=== PATIENT | female | born 1955 | race Caucasian/White ===

== ENCOUNTER 2024-05-28 19:33 | Inpatient (IN) | payer OTHER, SELFPAY ==
[2024-05-28 17:38] VITALS: BP 92/63
[2024-05-28 17:44] VITALS: BMI 15.8
--- NOTE | 2024-05-28 17:52 | ED.GENMED ---
History of Present Illness
General
Chief Complaint: Failure to Thrive
Source: family
Exam Limitations: dementia
Time Seen by Provider: 05/28/24 17:38
Nursing documentation reviewed up to this point in time: agreed with
History of Present Illness
History of Present Illness:
Patient is a 68-year-old female uxa-qzauira-xxdodxbdq diabetes, hypertension and dementia from [facility] sent by EMS. Daughter and son at bedside reports patient has not been eating or drinking for the past several days. This
problem has been gradually getting worse over the past year.
They report she probably lost about 50 pounds over the past year. Family reports pt was supposed to be started on Remeron and sertraline however they are unclear if this has started.
They do report the patient is at baseline mental status.
In March patient was living by herself then she went to assisted living and finally to personal care at [facility]
Review of Systems
Review of Systems
Allergies reviewed?: Yes
Unable to obtain full review of systems at this time due to: dementia
Other source history: family and [facility]
All Other Systems: ROS reviewed and negative except as documented in HPI and ROS
Constitutional: Reports weight loss
Phy Exam
General Physical Exam
General Presentation: no apparent distress
General age: appears stated age
General Skin: warm and dry
General Habitus: elderly
General Mental: alert
General Hydration: dry mucous membranes
Cardiovascular Exam
Cardiovascular Exam: regular rate/rhythm, no murmur and normal peripheral pulses
Pulmonary Exam
Pulmonary Exam: lungs clear and no respiratory distress
Neurological Exam
Neurological Exam: alert and oriented x3
Musculoskeletal Exam
Musculoskeletal Exam: full ROM
Skin Exam
Skin Exam: normal color and warm/dry
Psychiatric Exam
Psychiatric Exam: normal mood/affect
Course
Orders/Labs/Results
Orders:
Orders
05/28/24 18:07
Straight cath- Treatment ONCE
Urinalysis Reflex To Culture Urgent
05/28/24 18:08
0.9% Sodium Chloride 1000 ml [Nss] 1,000 ml IV BOLUS
05/28/24 18:16
Complete Blood Count/With Diff Urgent
Comprehensive Metabolic Panel Urgent
05/28/24 18:43
Electrocardiogram (*1) Stat
Reason for Study: Other
Other Reason for Exam: chest pain
EKG- Treatment ONCE
Abnormal Lab Results
05/28/24
18:16
MPV 11.2 H fL
(7.4-10.4)
Absolute Lymphs (auto) 1.0 L 10^3/uL
(1.2-3.4)
Neutrophils % 77.7 H %
(42.2-75.2)
Lymphocytes % 16.3 L %
(20.5-51.1)
Chloride 109 H mmol/L
(98-107)
Carbon Dioxide 18 L mmol/L
(22-30)
BUN 51 H mg/dl
(7-17)
Creatinine 1.3 H mg/dL
(0.6-1.0)
Total Bilirubin 3.6 H mg/dl
(0.2-1.3)
05/28/24 18:16
05/28/24 18:16
Vital Signs
Initial and Last Documented VS:
Initial Vital Signs
Temp Pulse Resp BP Pulse Ox
97.5 F 60 24 92/63 100
05/28/24 17:38 05/28/24 17:38 05/28/24 17:38 05/28/24 17:38 05/28/24 17:38
Last Documented Vital Signs
Temp Pulse Resp BP Pulse Ox
97.5 F 57 24 101/75 100
05/28/24 18:15 05/28/24 18:15 05/28/24 17:38 05/28/24 18:15 05/28/24 18:15
MDM/Problems Addressed
Differential Diagnosis Includes:
Dehydration Jessica abnormality failure to thrive
MDM/Problems Addressed:
Patient will require admission for failure to thrive. This has been getting progressively worse however worse over the past several days. Patient is very dry on exam elevated BUN of 51 creatinine 1.3 patient has not been here in the past. She
denies any elevated bilirubin 3.6 with normal LFTs. CBC unremarkable UA pending. Patient receiving fluids here will require admission.
Chronic conditions affecting care:
Dementia
*Critical Care Note
Total Time (30-74mins, 75-104mins- exclusive of procedures): Not Applicable
ED Attending Note
-
Portions of this chart may have been created with voice recognition software.� Occasional wrong word or��sound alike� substitutions may have occurred due to the inherent limitations of voice recognition software.
Discharge Plan
Departure
Patient Disposition: Admit
Date of Disposition: 05/28/24
Time of Disposition: 18:43
Admit to: Med/Surg
Admit to doctor: hospitalist
Presentation/result/management discussed w/ accepting MD/DO: Hospitalist
Patient with high blood pressure during this ER visit?: No
Condition: Fair
Covid-19: Not Applicable
Discharge Problem:
Adult failure to thrive, Acute dehydration
Referrals:
UNKNOWN - PT DOES,NOT KNOW [Family Provider] -
Interventions
Interventions:
*General Assessment Last Done: 05/28/24 17:47
*Neglect/Abuse Screening Last Done: 05/28/24 17:47
*ED COVID-19 Vaccine History Last Done: 05/28/24 17:46
Discharge Date and Time
Print Language: BRAZILIAN
--- NOTE | 2024-05-28 18:04 | PHANOTE ---
med rec note- called [facility] at [phone] patient did not come with any paper work from [facility]. called and ask for them to fax it over
[2024-05-28] MEDS: NSS 1000 IV (18:10)
[2024-05-28 18:15] VITALS: BP 101/75
[2024-05-28 18:24] LABS: % Basophils 0.2 % (0-2); % Eosinophils 0.2 % (0-6); % Immature Granulocytes 0.3 % (0-0.5); % Lymphocytes 16.3 % (20.5-51.1); % Monocytes 5.3 % (1.7-9.3); % Neutrophils 77.7 % (42.2-75.2); Absolute Monocytes 0.3 10^3/uL (0.1-0.6); Absolute Neutrophils 4.6 10^3/uL (1.4-6.5); Hemoglobin 14.4 g/dL (12.0-16.0); Mean Corp Hgb Conc. 34.3 g/dL (33.0-37.0); Mean Corpuscular Hgb 29.4 pg (27.0-31.0); Mean Corpuscular Volume 85.7 fL (81.0-99.0); Mean Platelet Volume 11.2 fL (7.4-10.4); Nucleated Red Blood Cells % 0 %; Platelet Count 143 10^3/uL (130-400); Red Cell Dist. Width 13.7 % (11.5-14.5); White Blood Cell Count 5.9 10^3/uL (4.8-10.8)
[2024-05-28 18:36] LABS: ALT (SGPT) 27 U/L (0-35); AST (SGOT) 34 U/L (14-36); Albumin 4.3 g/dl (3.5-5.0); Alkaline Phosphatase 78 U/L (38-126); Blood Urea Nitrogen 51 mg/dl (7-17); Carbon Dioxide 18 mmol/L (22-30); Chloride 109 mmol/L (98-107); Estimated Creatinine Clearance 25 ml/min; Glucose 96 mg/dl (70-99); Potassium 4.2 mmol/L (3.5-5.1); Sodium 142 mmol/L (135-145); Total Bilirubin 3.6 mg/dl (0.2-1.3); Total Protein 6.7 g/dl (6.3-8.2); eGFR 45.07
[2024-05-28 19:00] VITALS: BP 89/78
--- NOTE | 2024-05-28 19:08 | HPS.HSE ---
Family Physician
-
Family Physician: NOT KNOW UNKNOWN - PT DOES
Chief Complaint
-
Failure to thrive
History of Present Illness
This 68-year-old who has a history of [place] DEMENTIA, yuh-dlmyjfs-iqdwvraen diabetes, hyperlipidemia, hypertension presents to the emergency department with dehydration, no p.o. intake over the last several days.
Patient was diagnosed with Alzheimer's dementia about a year ago. She was placed on donepezil. She has had significant decline since then. She has been transferred from: Home, to independent living and then in the last few months to a memory
unit. Family reports that she has had about a 50 pound weight loss over the last year. She is having very limited appetite. They report that she has always been a picky eater but recently she is barely taking any p.o. She denies any dysphagia.
She denies any nausea or vomiting. She denies any abdominal pain. She reported to the ED that she had some dysuria but not to me. There has been no diarrhea. Patient has no history of seizures, falls, CVA. It appears that the memory unit as
attempted to start Remeron and sertraline to help boost her appetite. She has no prior history of alcohol use. She has no prior psychiatric history. Family has noticed in addition to progressive loss of appetite she has had significant
personality changes of consistent with her rapidly progressive Alzheimer's dementia.
On arrival in the emergency department she was afebrile, blood pressure was 101/75 with a pulse of 57 satting at 100% on room air. CBC was unremarkable. She had BUN of 51 with a creatinine of 1.3. Bicarb was 18 with the rest of electrolytes being
normal. LFTs shows a total bilirubin of 3.6 but otherwise unremarkable.
Medical History
Past Medical History
Past Medical History: Reports Dementia, HTN and Hypercholesterolemia
Past Surgical History: Reports None
Social History
Tobacco: Non-smoker
Alcohol: None
Drug: None
Personal: Single
Living: Care Home
Employment: Disabled
Family History
Family History: Not pertinent
Allergies / Home Medications
Allergies reflects when Allergies were last updated in [employer].
Home Medications with original date entered in [employer]
Allergy/Medication List:
Allergies
Allergy/AdvReac Type Severity Reaction Status Date / Time
No Known Allergies Allergy Verified 05/28/24 18:10
Home Medications
atorvastatin 20 mg tablet (Lipitor) 20 mg PO QPM 05/28/24
donepezil 10 mg tablet 10 mg PO HS 05/28/24
metformin 500 mg tablet 500 mg PO DAILY 05/28/24
mirtazapine 15 mg tablet (Remeron) 7.5 mg PO HS 05/28/24
sertraline 50 mg tablet 50 mg PO DAILY 05/28/24
valsartan 80 mg tablet 80 mg PO DAILY 05/28/24
Review of Systems
-
History Source: Family
Constitutional: Reports Weight Loss
EENT: Reports No Symptoms
Respiratory: Reports No Symptoms
Cardiac: Reports No Symptoms
Abdomen/GI: Reports No Symptoms
: Reports No Symptoms
Musculoskeletal: Reports No Symptoms
Skin: Reports No Symptoms
Neurological: Reports No Symptoms
Endocrine: Reports No Symptoms
Hematologic/Lymphatic: Reports No Symptoms
Psych: Reports No Symptoms
Physical Exam
Vital Signs
Vital Signs
Temp Pulse Resp BP Pulse Ox
97.5 F 57 24 101/75 100
05/28/24 18:15 05/28/24 18:15 05/28/24 17:38 05/28/24 18:15 05/28/24 18:15
Physical Exam
General: Poor Appetite and Cachectic
HEENT: NormoCephalic, Anicteric, Atraumatic, PERRLA, [place] Conjunctivae, Neck Nontender and Other (dry mucus membranes)
Respiratory: Clear
Cardiac: S1/S2 and Bradycardia
Breast: Deferred by me
GI: Soft, Non Tender, Non Distended and Normal Bowel Sounds
Rectal: Deferred by Provider
Genito-urinary: Deferred by me
Musculoskeletal: No Clubbing, No Cyanosis and No Edema
Skin: Warm
Neuro: Awake, Alert, Oriented (oriented to person) and Nonfocal/grossly intact
Hematologic/Lymphatic: No Lymphadenopathy
Psych: Apparent Dementia
Laboratory Results
-
05/28/24 18:16
05/28/24 18:16
Laboratory Results
Total Bilirubin 3.6 mg/dl (0.2-1.3) H 05/28/24 18:16
AST 34 U/L (14-36) 05/28/24 18:16
ALT 27 U/L (0-35) 05/28/24 18:16
Alkaline Phosphatase 78 U/L (38-126) 05/28/24 18:16
Data Reviewed
-
Lab Data: Labs Reviewed by me
Old Records: Reviewed
Impression/Plan
-
IMPRESSION:
68 y.o with apparent early onset alzeimhers dementia diagnosed 1 year ago with progressive weight loss of 50 Ibs over the last year, worsening appetite, dehydration and now with no significant PO intake in the last several days. No acute focal
neurological deficits, no obvious infection, no obvious intraabdominal pathology. Question of urinary symptoms on history. Appears to be having rapid progression of disease with personality changes, appetite loss and likely mood d/o. Family
reasonable about expectations of admission. Ultimately no artificial measures such as TPN, PEG tubes etc are preferred and likely not beneficial.
PLAN:
Failure to thrive - Suspect secondary to dementia and likley not reversible. Will evaluate for possible reversibility with hormonal and metablic testing. Rehydration measures and supplementation.
- admit to med/surg
- obtain u/a, tsh, b12, folate
- start thiamine supplementation IV for now
- folate supplementation
- check ECG, start remeron and sertraline
- continue donepezil
- will hold valsartan, lipitor for now
DAVON - given weight of 38Kg, Cr 1.3 and BUN 51 delroyley reflects significant renal declines. She also has systolic BP down to the low 90s
- hold valsartan
- IV hydration with LR continued at 80ml/hr for now
DM II
- hold metformin
- sliding scale insulin
UTI - possible UTI. U/A is positive but no nitrites
- urine culture
- ceftriaxone iv
DVT PPX - heparin sq
Code Status - DNR
[2024-05-28 19:59] LABS: Urine Albumin Trace (Neg - Trace); Urine Bilirubin 1+ (Negative); Urine Character Clear (Clear); Urine Color Yellow; Urine Glucose Negative (Negative); Urine Ketone 1+ (Negative); Urine Leukocyte 1+ (Negative); Urine Nitrite Negative (Negative); Urine Occult Blood Negative (Negative); Urine Specific Gravity 1.025 (<1.030); Urine Urobilinogen 1+ (Neg - 1+)
[2024-05-28 20:00] VITALS: BP 103/91
[2024-05-28 20:15] LABS: Urine Bacteria Few (Negative)
[2024-05-28 21:15] VITALS: BMI 15.0
[2024-05-28] MEDS: LR 1000 IV (21:31)
[2024-05-28] MEDS: ARICEPT PO (22:12)
[2024-05-28] MEDS: HEPARIN 5000 UNITS SC (22:38)
[2024-05-28] MEDS: REMERON 7.5 MG PO (22:39)
[2024-05-28 23:34] VITALS: BP 105/64
[2024-05-29] MEDS: ROCEPHIN 1000 MG IV ×2 (00:16→23:42)
[2024-05-29] MEDS: STERILE WATER FOR INJECTION 10 ML IV ×2 (00:17→23:42)
[2024-05-29] MEDS: THIAMINE INJECTION 255 MG IV ×4 (00:17→23:43)
[2024-05-29] MEDS: FLUSH (NSS) 1 FLUSH IV ×2 (00:18→00:19)
[2024-05-29 00:38] LABS: Glucose - Point of Care 82 mg/dl (70-99)
[2024-05-29 05:59] LABS: Blood Urea Nitrogen 44 mg/dl (7-17); Calcium 9.1 mg/dl (8.4-10.2); Carbon Dioxide 20 mmol/L (22-30); Chloride 114 mmol/L (98-107); Estimated Creatinine Clearance 30 ml/min; Glucose 83 mg/dl (70-99); HDL Cholesterol 56 mg/dl; LDL Cholesterol, Calculated 116 mg/dl; Magnesium 2.5 mg/dl (1.6-2.3); Potassium 3.8 mmol/L (3.5-5.1); Sodium 144 mmol/L (135-145); Total Cholesterol 190 mg/dl (50-199); Triglyceride 92 mg/dl (10-149); Very Low Density Lipoprotein 18 mg/dl (0-30); eGFR 55.07
[2024-05-29 06:00] VITALS: BMI 14.5; BMI 15.0
[2024-05-29 06:27] LABS: TSH 0.13 uIU/ml (0.47-4.68)
[2024-05-29 07:00] VITALS: BP 108/59
[2024-05-29 07:02] LABS: Folate 2.6 ng/ml (2.76-20); Vitamin B12 943 pg/ml (239-931)
[2024-05-29] MEDS: FOLVITE 50.2 MG IV (08:16)
[2024-05-29 08:47] LABS: Glucose - Point of Care 86 mg/dl (70-99)
[2024-05-29 08:50] LABS: Total Thyroxine 7.78 ug/dl (5.5-11.0)
[2024-05-29] MEDS: HEPARIN 5000 UNITS SC ×2 (09:06→20:35)
[2024-05-29] MEDS: FOLVITE 1 MG PO (09:07)
[2024-05-29] MEDS: ZOLOFT 50 MG PO (09:07)
[2024-05-29] MEDS: NSS 1000 IV (10:33)
--- NOTE | 2024-05-29 10:48 | W.PN.HOSP.TC ---
Today's Communication/Plan
-
see outlined plan
Assessment / Plan
Assessment / Plan
Assessment:
Suspected UTI
- continue Rocephin, day 1 pending culture
DAVON
- continue IVF
- hold ARB and other nephrotoxins
Hx of advanced Alzheimer dementia
chronic FTT with severe protein caloric malnutrition
- TSH low, but FT4 normal
- B12 ok
- Folate low normal, IV replacement for now
- continue Thiamine started on admission
- ok to start Remeron/Zoloft as planned
- CT head to evaluate occult CVA
type 2 DM
- hold Metformin
- continue SSI
- A1c: pending
DVT ppx: SC Heparin
Code: DNR
Anticipated Discharge: > 48 hours
Subjective/Interval History
-
Date of Service: May 29, 2024
resting comfortably
Objective Data
-
Labs:
Laboratory Results
05/29/24
04:59
Sodium 144
Potassium 3.8
Chloride 114 H
Carbon Dioxide 20 L
BUN 44 H
Creatinine 1.1 H
Glucose 83
Calcium 9.1
Vital Signs:
Vital Signs
Temp Pulse Resp BP Pulse Ox
97.5 F 56 17 108/59 100
05/29/24 07:00 05/29/24 07:00 05/29/24 07:00 05/29/24 07:00 05/29/24 07:00
I&O
05/28/24 05/29/24 05/30/24
06:59 06:59 06:59
Intake Total 1015 / 1015
Balance 1015 / 1015
Physical Exam
-
General: No Apparent Distress and Appears Chronically Ill
HEENT: Normocephalic and Atraumatic
Respiratory: Negative Wheezes
Cardiac: Regular Rhythm and S1/S2
GI: Soft
Musculoskeletal: No Edema
Psych: Calm and Apparent Dementia
Data Reviewed
-
Total Time Spent with Patient (in minutes): 41
Labs: Labs Reviewed by me
[2024-05-29 12:00] VITALS: BP 105/66; PULSE 60; O2SAT 100
[2024-05-29 12:50] VITALS: BP 105/66; PULSE 60; O2SAT 100
[2024-05-29 13:22] LABS: Glucose - Point of Care 67 mg/dl (70-99)
[2024-05-29 13:43] LABS: Glucose - Point of Care 70 mg/dl (70-99)
[2024-05-29] MEDS: SODIUM BICARBONATE 1150 MEQ IV (14:27)
--- NOTE | 2024-05-29 16:09 | CM ---
Met with pt, her daughter and son at bedside
Pt resides at [facility] memory care unit per family
At baseline confused, was ambulating without device, assist with ADL's at baseline
Family unsure of dispo at this time
PCP - Kashif Hernández
Pharm - [facility]
Plan - TBD based on needs. CM will follow
[2024-05-29 16:37] LABS: Glucose - Point of Care 132 mg/dl (70-99)
[2024-05-29 17:38] VITALS: BP 105/62
--- NOTE | 2024-05-29 20:20 | PTCARENOTE ---
Pt oob multiple times with bed alarm , cannot be redirected. Oriented to self, agitated at times. Med sitter initiated. call hale within reach.
[2024-05-29] MEDS: ARICEPT PO (20:33)
[2024-05-29 21:45] LABS: Glucose - Point of Care 95 mg/dl (70-99)
[2024-05-29] MEDS: REMERON 7.5 MG PO (23:16)
[2024-05-29] MEDS: ARICEPT 10 MG PO (23:17)
[2024-05-29 23:35] VITALS: BP 111/61
[2024-05-30] MEDS: FLUSH (NSS) IV ×2 (01:15)
[2024-05-30 07:16] LABS: Glucose - Point of Care 122 mg/dl (70-99)
[2024-05-30] MEDS: FOLVITE 1 MG PO (08:23)
[2024-05-30] MEDS: ZOLOFT 50 MG PO (08:23)
[2024-05-30] MEDS: FOLVITE 50.2 MG IV (08:23)
[2024-05-30] MEDS: THIAMINE INJECTION 255 MG IV ×2 (08:23→16:03)
[2024-05-30] MEDS: HEPARIN 5000 UNITS SC ×2 (08:24→21:42)
[2024-05-30 08:56] LABS: Hematocrit 37.2 % (37.0-47.0); Hemoglobin 12.6 g/dL (12.0-16.0); Mean Corp Hgb Conc. 33.9 g/dL (33.0-37.0); Mean Corpuscular Hgb 29.6 pg (27.0-31.0); Mean Corpuscular Volume 87.3 fL (81.0-99.0); Mean Platelet Volume 10.9 fL (7.4-10.4); Platelet Count 102 10^3/uL (130-400); Red Blood Cell Count 4.26 10^6/uL (4.20-5.40); Red Cell Dist. Width 13.9 % (11.5-14.5); White Blood Cell Count 4.9 10^3/uL (4.8-10.8)
[2024-05-30 09:07] LABS: ALT (SGPT) 22 U/L (0-35); AST (SGOT) 35 U/L (14-36); Albumin 3.1 g/dl (3.5-5.0); Alkaline Phosphatase 63 U/L (38-126); Blood Urea Nitrogen 30 mg/dl (7-17); Calcium 8.6 mg/dl (8.4-10.2); Carbon Dioxide 29 mmol/L (22-30); Chloride 108 mmol/L (98-107); Estimated Creatinine Clearance 30 ml/min; Glucose 107 mg/dl (70-99); Potassium 3.1 mmol/L (3.5-5.1); Sodium 142 mmol/L (135-145); Total Bilirubin 2.4 mg/dl (0.2-1.3); Total Protein 5.4 g/dl (6.3-8.2); eGFR > 60.00
--- NOTE | 2024-05-30 10:13 | PTCARENOTE ---
pt received IV thiamine and IV folic acid this morning. with daughter at bedside pt is refusing to take oral medications for this nurse.
[2024-05-30 10:49] LABS: Magnesium 2.2 mg/dl (1.6-2.3)
--- NOTE | 2024-05-30 11:46 | CM ---
Met with patient and daughter Belkis at bedside.
Patient resides at [facility] in [place]
PT rec home PT at facility
Left message with [facility] medical staff coordinator.
PLAN: Discharge when medically stable, home PT
--- NOTE | 2024-05-30 12:39 | W.PN.HOSP.TC ---
Today's Communication/Plan
-
see A/P
Assessment / Plan
Assessment / Plan
A/P:
# FTT and decreased PO intake, possibly due to progression of underlying severe dementia
# severe protein caloric malnutrition
Continue Remeron, increased to 15 mg HS
discussed options with daughter: PEG vs palliative/hospice. She refuses PEG and is leaning to palliative/hospice currently
# Possible UTI
however, Urine culture negative for growth
Complete Rocephin for 3 days total
# Prerenal DAVON, resolved
s/p IVF
SCr improved from 1.3 on admission to 1.0
HOTEL GENERAL MANAGER ARB on hold
# Hx of advanced Alzheimer dementia
# chronic FTT with severe protein caloric malnutrition
TSH low at 0.13, but FT4 normal at 7.78. Can repeat TFT with PCP in 4 weeks.
B12 WNL at 900
Folate low normal, IV replacement for now
continue Thiamine started on admission
Cont HOTEL GENERAL MANAGER Zoloft
CT head: No acute intracranial abnormality noted.
# type 2 DM
hold Metformin
continue SSI
A1c 6.0%
# Hypokalemia
replete
DVT ppx: SC Heparin
Code: DNR
DW daughter in person. Discussed options with regard to pt's poor PO intake.
Total time spent 51 min
Anticipated Discharge: 24 - 48 hours
Subjective/Interval History
-
Date of Service: May 30, 2024
Objective Data
-
Labs:
Laboratory Results
05/30/24
08:28
WBC 4.9
Hgb 12.6
Hct 37.2
Plt Count 102 L D
Sodium 142
Potassium 3.1 L
Chloride 108 H
Carbon Dioxide 29
BUN 30 H
Creatinine 1.0
Glucose 107 H
Calcium 8.6
Total Bilirubin 2.4 H
AST 35
ALT 22
Alkaline Phosphatase 63
Vital Signs:
Vital Signs
Temp Pulse Resp BP Pulse Ox
36.4 C 62 17 111/61 99
05/30/24 08:33 05/29/24 23:35 05/29/24 23:35 05/29/24 23:35 05/29/24 23:35
I&O
05/29/24 05/30/24 05/31/24
06:59 06:59 06:59
Intake Total 1015 / 1015 8 / 176
Balance 1015 / 1015 8 / 176
Review of Systems
-
Unable to obtain full review of systems at this time due to: Dementia
Physical Exam
-
General: Well Developed, No Apparent Distress, Comfortable, Appears Chronically Ill and Cachectic
HEENT: Normocephalic and Atraumatic
Respiratory: Non Labored Respirations; Negative Accessory Resp Muscle Use
Cardiac: Regular Rhythm and S1/S2
GI: Soft, Nontender and Nondistended
Neuro: Awake
Psych: Calm and Apparent Dementia
Data Reviewed
-
CT Scan: Report Reviewed by me
Labs: Labs Reviewed by me
[2024-05-30 15:12] VITALS: BP 106/65
[2024-05-30 16:53] VITALS: BMI 15.0
[2024-05-30 17:48] LABS: Glucose - Point of Care 74 mg/dl (70-99)
[2024-05-30] MEDS: ARICEPT 10 MG PO (21:40)
[2024-05-30] MEDS: REMERON ODT 15 MG PO (21:42)
[2024-05-30 22:12] LABS: Glucose - Point of Care 69 mg/dl (70-99)
[2024-05-30 22:29] LABS: Glucose - Point of Care 99 mg/dl (70-99)
[2024-05-30 23:31] VITALS: BP 106/63
[2024-05-31] MEDS: ROCEPHIN 1000 MG IV (00:42)
[2024-05-31] MEDS: FLUSH (NSS) IV ×2 (00:42)
[2024-05-31] MEDS: THIAMINE INJECTION 255 MG IV ×2 (00:42→08:09)
[2024-05-31] MEDS: STERILE WATER FOR INJECTION 10 ML IV (00:42)
[2024-05-31] MEDS: DEXTROSE 50% SYRINGE 12.5 GRAMS IV (04:07)
[2024-05-31 04:11] LABS: Glucose - Point of Care 68 mg/dl (70-99)
[2024-05-31 04:44] LABS: Glucose - Point of Care 110 mg/dl (70-99)
[2024-05-31] MEDS: D5/0.9% SODIUM CHLORIDE 1000 IV (05:58)
--- NOTE | 2024-05-31 06:27 | PTCARENOTE ---
Pt treated for hypoglycemia x2 overnight, see hypoglycemia flowsheet for treatment details; continues with poor PO intake. D/w covering FENCE ERECTOR SUPERVISOR, pt started on D5NS for blood sugar support, see MAR.
[2024-05-31 07:00] VITALS: BP 105/66
[2024-05-31 07:11] LABS: Glucose - Point of Care 87 mg/dl (70-99)
[2024-05-31 07:29] LABS: Hematocrit 37.7 % (37.0-47.0); Hemoglobin 12.8 g/dL (12.0-16.0); Mean Corpuscular Hgb 29.9 pg (27.0-31.0); Mean Corpuscular Volume 88.1 fL (81.0-99.0); Mean Platelet Volume 11.4 fL (7.4-10.4); Platelet Count 99 10^3/uL (130-400); Red Blood Cell Count 4.28 10^6/uL (4.20-5.40); Red Cell Dist. Width 13.7 % (11.5-14.5); White Blood Cell Count 5.5 10^3/uL (4.8-10.8)
[2024-05-31] MEDS: FOLVITE 50.2 MG IV (08:08)
[2024-05-31] MEDS: FOLVITE 1 MG PO (08:09)
[2024-05-31] MEDS: ZOLOFT 50 MG PO (08:09)
[2024-05-31] MEDS: HEPARIN 5000 UNITS SC (08:09)
[2024-05-31 09:33] LABS: Blood Urea Nitrogen 21 mg/dl (7-17); Calcium 8.3 mg/dl (8.4-10.2); Carbon Dioxide 30 mmol/L (22-30); Chloride 109 mmol/L (98-107); Estimated Creatinine Clearance 30 ml/min; Glucose 92 mg/dl (70-99); Magnesium 2.1 mg/dl (1.6-2.3); Potassium 3.1 mmol/L (3.5-5.1); Sodium 143 mmol/L (135-145); eGFR > 60.00
[2024-05-31 11:30] VITALS: BP 103/64; BP 97/60; PULSE 57; O2SAT 98
[2024-05-31 11:33] LABS: Glucose - Point of Care 70 mg/dl (70-99)
--- NOTE | 2024-05-31 12:10 | PN.CDI ---
CDI
- -
CDI:
Physician Documentation Request
Admit Date: 05/28/24 19:33
Dear Doctor Rosi,
Please review the following and provide your response in the progress notes.
Clinical Indicators:
Pt admitted with dehydration/DAVON / Possible UTI/ Dementia
Patient care note 05/29 @ 2019, ' Pt oob multiple times with bed alarm , cannot be redirected. Oriented to self, agitated at times. Med sitter initiated...'
Had CT done and negative
Based on the above, could you clarify in the Progress Notes and Discharge Summary which, if any of the following, is the most likely etiology of the above findings:
Metabolic Encephalopathy/Dementia
Dementia with acute delirium
Other - ( please specify)
Use of terms such as suspected, likely, concern for, or probable (associated with a specific diagnosis that is being evaluated, monitored, or treated as if it exists) are acceptable and can be coded in the inpatient setting, when documented at the
time of discharge.
Thank you,
Kathi Green RN
CDI Specialist
[facility]
Please use your independent medical judgment in providing your response.
--- NOTE | 2024-05-31 12:22 | W.PN.HOSP.TC ---
Addendum entered and electronically signed by Chikis Aranda MD 05/31/24 14:33:
# Dementia with acute delirium
Original Note:
Today's Communication/Plan
-
start comfort measures. Stop blood draws, AccuCheck etc.
dispo plan: back to facility under hospice
Assessment / Plan
Assessment / Plan
A/P:
# FTT and decreased PO intake, possibly due to progression of underlying severe dementia
# severe protein caloric malnutrition
# Hypoglycemia 2/2 poor PO intake.
Continue Remeron, increased to 15 mg HS
discussed options with family: PEG vs palliative/hospice. Family declined PEG and agreed to proceed with hospice
# Possible UTI
however, Urine culture negative for growth
Complete Rocephin for 3 days total
# Prerenal DAVON, resolved
s/p IVF
SCr improved from 1.3 on admission to 1.0
INSTRUMENT REPAIR SUPERVISOR ARB on hold
# Hx of advanced Alzheimer dementia
# chronic FTT with severe protein caloric malnutrition
TSH low at 0.13, but FT4 normal at 7.78.
B12 WNL at 900
Folate low normal, but with transitioning to comfort/hospice, stop further IV replacement
Cont INSTRUMENT REPAIR SUPERVISOR Zoloft
CT head: No acute intracranial abnormality noted.
# type 2 DM
hold Metformin
continue SSI
A1c 6.0%
# Hypokalemia
replete
DVT ppx: SC Heparin
Code: DNR
DW daughter, son, DIL in person. Discussed GOC. Family would like to start hospice.
CM on board
Total time spent 51 min
Anticipated Discharge: Within 24 hours
Subjective/Interval History
-
Date of Service: May 31, 2024
Objective Data
-
Labs:
Laboratory Results
05/31/24 05/31/24
06:28 08:07
WBC 5.5
Hgb 12.8
Hct 37.7
Plt Count 99 L
Sodium Cancelled 143
Potassium Cancelled 3.1 L
Chloride Cancelled 109 H
Carbon Dioxide Cancelled 30
BUN Cancelled 21 H
Creatinine Cancelled 1.0
Glucose Cancelled 92
Calcium Cancelled 8.3 L
Vital Signs:
Vital Signs
Temp Pulse Resp BP Pulse Ox
36.3 C 55 16 105/66 100
05/30/24 23:31 05/31/24 07:00 05/31/24 07:00 05/31/24 07:00 05/31/24 07:00
I&O
05/30/24 05/31/24 06/01/24
06:59 06:59 06:59
Intake Total 1767 1015 / 1015
Balance 1767 1015 / 1015
Review of Systems
-
Unable to obtain full review of systems at this time due to: Dementia
Physical Exam
-
General: Well Developed, No Apparent Distress, Comfortable, Appears Chronically Ill and Cachectic
HEENT: Normocephalic and Atraumatic
Respiratory: Non Labored Respirations; Negative Accessory Resp Muscle Use
Cardiac: Regular Rhythm and S1/S2
GI: Soft, Nontender and Nondistended
Neuro: Awake
Psych: Calm and Apparent Dementia
Data Reviewed
-
CT Scan: Report Reviewed by me
Labs: Labs Reviewed by me
--- NOTE | 2024-05-31 13:08 | CM ---
Addendum entered by Indira Leigh 05/31/24 15:12:
Brittany from [facility] called CM and they accepted patient, daughter signing consents.
IMM explained & signed. In chart
transportation forms on chart.
OOH DNR on chart - tt Dr. Aranda to sign form
Original Note:
Met with patient and daughter Belkis & son Rivera
interested in hospice. Case management consult completed.
CM called [facility] memory care & spoke with SHADY Graf
States they use [facility] & [facility] agencies
family agreeable to [facility].
Spoke with Brittany liaison at [facility] ([phone]) and faxed ([phone]) clinicals to her. She will speak with daughter.
Notified Viviane at [facility] of plan.
PLAN: [facility], [facility]
Report #: [phone]
Fax #: [phone]
[facility] Fax #: [phone]
--- NOTE | 2024-05-31 16:39 | PTCARENOTE ---
Patient is now on comfort care. Safety and comfort measures maintained, Family at bedside. PT worked with patient during shift, hand hold assist to and from bathroom. Tolerated sitting OOB for meals. Call hale within reach.
[2024-05-31 19:00] VITALS: BP 121/70
[2024-05-31] MEDS: REMERON ODT PO (21:23)
[2024-05-31] MEDS: ARICEPT PO (21:23)
[2024-06-01] MEDS: FLUSH (NSS) IV ×2 (00:03→00:04)
[2024-06-01] MEDS: STERILE WATER FOR INJECTION 10 ML IV (00:12)
[2024-06-01] MEDS: ROCEPHIN 1000 MG IV (00:12)
[2024-06-01 07:00] VITALS: BP 127/70
[2024-06-01] MEDS: ZOLOFT PO (07:38)
--- NOTE | 2024-06-01 10:38 | W.PN.HOSP.TC ---
Addendum entered and electronically signed by Chikis Aranda MD 06/01/24 15:17:
total DC time 36 min
Original Note:
Today's Communication/Plan
-
DC
Hospice
Assessment / Plan
Assessment / Plan
A/P:
# FTT and decreased PO intake, possibly due to progression of underlying severe dementia
# severe protein caloric malnutrition
# Hypoglycemia 2/2 poor PO intake.
Continue Remeron, increased to 15 mg HS
discussed options with family: PEG vs palliative/hospice. Family declined PEG and agreed to proceed with hospice. Plan for pt to return to [facility] memory care unit under hospice
# Possible UTI
however, Urine culture negative for growth
Completed Rocephin for 3 days total
# Prerenal DAVON, resolved
s/p IVF
SCr improved from 1.3 on admission to 1.0
HIGH SCHOOL PROFESSIONAL ARB on hold
# Hx of advanced Alzheimer dementia
# chronic FTT with severe protein caloric malnutrition
TSH low at 0.13, but FT4 normal at 7.78.
B12 WNL at 900
Folate low normal, but with transitioning to comfort/hospice, stop further IV replacement
Cont HIGH SCHOOL PROFESSIONAL Zoloft
CT head: No acute intracranial abnormality noted.
# type 2 DM
hold Metformin
continue SSI
A1c 6.0%
# Hypokalemia
replete
DVT ppx: SC Heparin
Code: DNR
DW daughter, son in person.
DW CM
Anticipated Discharge: Today
Subjective/Interval History
-
Date of Service: June 01, 2024
Objective Data
-
Vital Signs:
Vital Signs
Temp Pulse Resp BP Pulse Ox
36.7 C 58 16 127/70 98
06/01/24 07:00 06/01/24 07:00 06/01/24 07:00 06/01/24 07:00 06/01/24 07:00
I&O
05/31/24 06/01/24 06/02/24
06:59 06:59 06:59
Intake Total 1015 / 1015
Balance 1015 / 1015
Review of Systems
-
Unable to obtain full review of systems at this time due to: Dementia
All other systems: Reviewed and negative
Physical Exam
-
General: Well Developed, No Apparent Distress, Comfortable, Appears Chronically Ill and Cachectic
HEENT: Normocephalic and Atraumatic
Respiratory: Non Labored Respirations; Negative Accessory Resp Muscle Use
Cardiac: Regular Rhythm and S1/S2
GI: Soft, Nontender and Nondistended
Neuro: Awake
Psych: Calm and Apparent Dementia
--- NOTE | 2024-06-01 10:41 | CM ---
Addendum entered by Indira Leigh 06/01/24 11:15:
1415 transport time - called Brittany at [facility] & Viviane at [facility].
Original Note:
OOH DNR signed
spoke with Brittany from [facility] & stated patient will be discharged today back to [facility].
Called Viviane CHAUDHRY) at [facility] to notify ([phone])
Transportation forms on chart - Time TBD
PLAN: [facility], [facility]
Report #: [phone]
Fax #: [phone]
[facility] Fax #: [phone]
--- NOTE | 2024-06-01 15:03 | W.DCSUMMARY ---
Discharge Summary
Discharge Data
Date of Admission: 05/28/24
Date of Discharge: 06/01/24
-
Pending Results: No
Hospital Course
Principal Diagnosis:
Failure to thrive with decreased oral intake, likely due to progression of underlying severe dementia
Hypoglycemia due to poor oral intake.
Possible urinary tract infection (UTI)
Resolved prerenal acute kidney injury (DAVON)
Chronic Diagnoses:�
Advanced Alzheimer dementia
Chronic failure to thrive with severe protein caloric malnutrition
[id number] diabetes
Severe protein caloric malnutrition
Consultations:�
None
Procedures:�
None
Clinical course:�
This is a 68-year-old female with past medical history as stated above, who presented with failure to thrive due to decreased oral intake, likely due to progression of underlying severe dementia.
Problem 1:
Failure to thrive with decreased oral intake, likely due to progression of underlying severe dementia.
This was associated with hypoglycemia.
Her prior to admission Remeron was increased to 15 mg HS.
Goals of care was discussed with her family, and they have agreed to transition her to hospice.
The patient was discharged back to her memory care unit under hospice care.
Problem 2:
Prerenal DAVON, resolved after IVF support.
Her SCr improved from 1.3 on admission to 1.0.
Problem 3:
Possible UTI, however her urine culture was negative for growth.
She completed Rocephin for 3 days total during her hospital stay.
As for the rest of her medical problems, they were stable during her hospital stay.
Discharge Plan
-
Patient Disposition: Home with Hospice
Discharge Diagnosis/Procedures: Failure to thrive and decreased oral intake possibly due to progression of underlying severe dementia;
Resolved prerenal acute kidney injury from dehydration;
Advanced dementia
Condition: Critical
Diet: As tolerated
Additional Diets: eat for pleasure
Activity: As tolerated
Driving Restrictions: No driving
Other Services: Hospice
Referrals:
Kashif Dwyer DO [Family Provider] -
Prescriptions:
New
mirtazapine 15 mg Tablet,Disintegrating
15 mg PO HS Qty: 30 0RF
Continued
donepezil 10 mg Tablet
10 mg PO HS
sertraline 50 mg Tablet
50 mg PO DAILY
Discontinued
metformin 500 mg Tablet
500 mg PO DAILY
atorvastatin [Lipitor] 20 mg Tablet
20 mg PO QPM
valsartan 80 mg Tablet
80 mg PO DAILY
mirtazapine [Remeron] 15 mg Tablet
7.5 mg PO HS
Discharge Orders:
Discharge Patient (As Directed); Ordered 06/01/24
Ordered By: Chikis Aranda
Discharge Date and Time
Print Language: CUBAN
== END 2024-06-01 15:58 | disposition hospice, home (50) | DRG 884 ==
LOC: 2 NORTH 19:33
PROVIDERS: Internal Medicine; Nurse Practitioner; ADMITTING PHYSICIAN Internal Medicine; ATTENDING PHYSICIAN Internal Medicine; EMERGENCY PHYSICIAN Emergency Medicine; FAMILY PHYSICIAN Internal Medicine Geriatric Medicine
DX: F03.90 Unspecified dementia, unspecified severity, without behavioral disturbance, psychotic disturbance, mood disturbance, and anxiety (principal); E43 Unspecified severe protein-calorie malnutrition; Z68.1 Body mass index [BMI] 19.9 or less, adult; N17.9 Acute kidney failure, unspecified; N39.0 Urinary tract infection, site not specified; F05 Delirium due to known physiological condition; F02.C0 Dementia in other diseases classified elsewhere, severe, without behavioral disturbance, psychotic disturbance, mood disturbance, and anxiety; R62.7 Adult failure to thrive; E11.649 Type 2 diabetes mellitus with hypoglycemia without coma; E87.6 Hypokalemia; Z66 Do not resuscitate; Z51.5 Encounter for palliative care
CPT/HCPCS: 51701; 70450; 80048; 80053; 80061; 81003; 81015; 82607; 82746; 82962; 83036; 83735; 84436; 84443; 85025; 85027; 87070; 87086; 93005; 96360; 97116; 97162; 97166; 97530; 99285

== ENCOUNTER 2024-06-28 07:42 | Emergency (ER) | payer OTHER, SELFPAY ==
[2024-06-28 07:49] VITALS: BP 104/68
[2024-06-28 07:52] VITALS: BP 104/68
[2024-06-28 08:00] VITALS: BP 102/57
--- NOTE | 2024-06-28 08:32 | ED.GENMED ---
History of Present Illness
General
Chief Complaint: Fall
Source: family
Time Seen by Provider: 06/28/24 08:18
History of Present Illness
History of Present Illness:
68-year-old female with past medical history of dementia currently on hospice care presenting to the ER via EMS from her hospice facility after she reportedly was found on the ground earlier this morning with family reporting that staff told them
that they had just been with the patient minutes prior to her being found on the ground. Patient stating everything is hurting her but mainly her head. No reported loss of consciousness, vomiting, behavioral changes or any other concerns at this
time. Patient did not receive her morning dose of palliative care morphine. She is denying any extremity pain when I attempted range of motion with the upper or lower extremities.
Past History
Past History
ED Past Medical History: HTN, NIDDM and Other (Alzheimer's dementia)
ED Past Surgical History: None
Social History
Tobacco: Non-smoker
Alcohol: None
Drug: None
Personal:
Living: half-way
Review of Systems
Review of Systems
All Other Systems: ROS reviewed and negative except as documented in HPI and ROS
Phy Exam
Physical Exam
Physical Exam:
GENERAL: Alert , in no apparent distress, very thin, frail
HEAD: Small contusion right occiput. Abrasion to the right posterior parietal
EYE: clear conjunctiva
NECK: Supple, no focal midline ttp
ENT: mmm.
CARDIAC: Regular rate and rhythm .
LUNGS: Clear breath sounds bilaterally, no acute respiratory distress, no wheezes/rales/rhonchi
ABDOMEN: Soft, without focal tenderness, no r/g, no cvat
NEUROLOGICAL: Alert and oriented to person and place
SKIN: Warm and dry, skin intact.
MUSCULOSKELETAL: No edema, well perfused. VERAS x 4 without difficulty
PSYCH: Normal and appropriate interaction.
Scores
Heart Failure Risk
Heart Failure Risk Score: Not Applicable
Heart Score for Chest Pain Patients
STEMI patient?: Not applicable
Withdrawal Assessment of Alcohol
Withdrawal Assessment Completed?: Not applicable
Course
Orders/Labs/Results
Orders:
Orders
06/28/24 08:[address]
CT Cervical Spine W/o Iv Contr Urgent
Comment:
Reason For Exam: unwitnessed fall, dementia
CT Head W/o Iv Contrast Urgent
Comment:
Reason For Exam: unwitnessed fall, dementia
Morphine Sulfate [Morphine Oral Solution] 5 mg PO NOW STA
Vital Signs
Initial and Last Documented VS:
Initial Vital Signs
Temp Resp BP Pulse Ox
98.0 F 18 104/68 100
06/28/24 07:49 06/28/24 07:49 06/28/24 07:49 06/28/24 07:49
Last Documented Vital Signs
Temp Resp BP Pulse Ox
98.0 F 18 102/57 100
06/28/24 07:49 06/28/24 07:49 06/28/24 08:00 06/28/24 08:30
MDM/Problems Addressed
Differential Diagnosis Includes:
accidental fall, head contusion, ICH, dehydration, deconditioning/muscle wasting
MDM/Problems Addressed:
68-year-old female presenting to the ER for evaluation following an accidental fall that was reportedly unwitnessed. Patient noting head pain. She does have a mild right occipital contusion but no breaks in the skin. She is at her current
baseline. CT of the head and cervical spine ordered. Patient was due for her morning dose of morphine at 9 AM so we will order this to keep her comfortable. Disposition pending
*Pulse Oximetry
Patient hypoxic: no
*Critical Care Note
Total Time (30-74mins, 75-104mins- exclusive of procedures): Not Applicable
Patient Management
Escalation/DeEscalation of care consider admission/obs:
CT scans without any acute abnormalities. Patient is stable for discharge back to her nursing facility. Family aware of return precautions to the ER.
ED Attending Note
-
Portions of this chart may have been created with voice recognition software.� Occasional wrong word or��sound alike� substitutions may have occurred due to the inherent limitations of voice recognition software.
Discharge Plan
Departure
Patient Disposition: Halfway/SNF
Date of Disposition: 06/28/24
Time of Disposition: 10:32
Patient with high blood pressure during this ER visit?: No
Discharge Problem:
Accidental fall, Contusion of scalp
Instructions: Head Injury in Adults (DC)
Prescriptions:
No Action
donepezil 10 mg Tablet
10 mg PO HS
sertraline 50 mg Tablet
50 mg PO DAILY
mirtazapine 15 mg Tablet,Disintegrating
15 mg PO HS Qty: 30 0RF
Referrals:
Kashif Dwyer DO [Family Provider] -
Interventions
Interventions:
*Risk Screen - Suicide Last Done: 06/28/24 07:45
*General Assessment Last Done: 06/28/24 07:45
*Neglect/Abuse Screening Last Done: 06/28/24 07:45
*ED COVID-19 Vaccine History Last Done: 06/28/24 07:45
ED-Musculoskeletal Assessment Last Done: 06/28/24 07:45
ED- Neurological Assessment Last Done: 06/28/24 07:45
ED-Skin Assessment Last Done: 06/28/24 07:45
Discharge Date and Time
Print Language: GAMBIAN
[2024-06-28] MEDS: MORPHINE ORAL SOLUTION 5 MG PO (08:40)
== END 2024-06-28 13:59 ==
LOC: EMR 07:42
PROVIDERS: EMERGENCY PHYSICIAN Emergency Medicine; FAMILY PHYSICIAN Internal Medicine Geriatric Medicine
DX: S00.03XA Contusion of scalp, initial encounter (principal); W19.XXXA Unspecified fall, initial encounter; I10 Essential (primary) hypertension; E11.9 Type 2 diabetes mellitus without complications; F02.80 Dementia in other diseases classified elsewhere, unspecified severity, without behavioral disturbance, psychotic disturbance, mood disturbance, and anxiety; G30.9 Alzheimer's disease, unspecified; Z51.5 Encounter for palliative care
CPT/HCPCS: 99284; 70450; 72125